=== PATIENT | female | born 1945 ===

== ENCOUNTER 2021-10-12 15:47 | Outpatient (CLI) | payer MEDICARE, OTHER | END 2021-10-12 15:48 | disposition home or self-care (01) | LOC: BICCT 15:47 | PROVIDERS: ATTEND Urology | DX: N20.0 Calculus of kidney (principal); K76.9 Liver disease, unspecified; N28.1 Cyst of kidney, acquired; N28.9 Disorder of kidney and ureter, unspecified; K57.30 Diverticulosis of large intestine without perforation or abscess without bleeding | CPT/HCPCS: 74176 ==